=== PATIENT | female | born 1985 | race Caucasian/White ===

== ENCOUNTER 2020-09-05 19:23 | Emergency (ER) | payer MEDICAID, SELFPAY ==
[~2020-09-05] VITALS: Ht 167.6 cm; Wt 138.3 kg
[2020-09-05 19:23] VITALS: BP_SYST 125
--- NOTE | 2020-09-05 20:30 | NUR ---
Patient to ER tent for evaluation. Side rails up. Report given to SONIA Nergo
--- NOTE | 2020-09-05 20:35 | NUR ---
Pt present to ER C/O difficulty breathing and cough x 1 week. Pt reports symtpoms have gotten worse within the last few days. Pt able to speak full sentences and O2 saturation at 97 percent. Pt states hx bariatric surgery. Pt reports symptoms starting 08/28/20.
--- NOTE | 2020-09-05 20:50 | NUR ---
ER at bedside examining patient.
[2020-09-05 21:01] LABS: MONOCYTES # (AUTO) 0.5 K/uL (0.0-1.0); WHITE BLOOD COUNT (AUTO) 5.7 K/uL (4.8-10.8)
[2020-09-05 21:06] LABS: BASOPHILS % (AUTO) 0.4 % (0.0-2.0); EOSINOPHILS % (AUTO) 0.8 % (0.0-4.0); HEMATOCRIT 44.4 % (36-48); HEMOGLOBIN 14.3 g/dL (12.0-16.0); MEAN CORPUSCULAR HEMOGLOBIN 26 pg (27-31); MEAN CORPUSCULAR HGB CONC 32 % (32-36); MEAN CORPUSCULAR VOLUME 81 fL (79.0-98.0); MONOCYTES % (AUTO) 8.1 % (1.7-9.3); NEUTROPHILS # (AUTO) 4.1 K/uL (1.8-7.7); NEUTROPHILS % (AUTO) 72.7 % (40.0-70.0); PLATELET COUNT (AUTO) 251 K/uL (130-430); RED CELL DISTRIBUTION WIDTH 15.3 % (9.0-15.0)
[2020-09-05 21:16] LABS: INFLUENZA A&B ANTIGEN SCREEN NEGATIVE FOR A & B (NEGATIVE)
[2020-09-05 21:18] LABS: CALCIUM 8.3 mg/dL (8.4-11.0); CREATININE 0.77 mg/dL (0.55-1.30)
[2020-09-05 21:24] LABS: ALBUMIN 2.8 g/dL (3.4-4.8); TOTAL BILIRUBIN 0.3 mg/dL (0.0-1.0)
--- NOTE | 2020-09-05 21:50 | NUR ---
Pt walked in place. pt remained stable with an Oxygen saturation above 95%.
[2020-09-05 23:24] VITALS: BP_SYST 124
--- NOTE | 2020-09-05 23:24 | NUR ---
Patient given written and verbal discharge instructions and verbalizes understanding. ER MD discussed with patient the results and treatment provided. Patient in stable condition. ID arm band removed. Rx of Dexamethasone, zithromax, and zinc given. Patient educated on pain management and to follow up with PMD. Opportunity for questions provided and answered. Medication side effect fact sheet provided.
[2020-09-05] MEDS: DECADRON 4 MG TABLET PO ONE (23:38)
[2020-09-05] MEDS: AZITHROMYCIN 250 MG TABLET PO ONE (23:38)
== END 2020-09-05 23:24 | disposition home or self-care (01) ==
LOC: SED 19:23
DX: U07.1 COVID-19 (principal); J18.9 Pneumonia, unspecified organism
CPT/HCPCS: 36415; 36600; 71045; 80053; 82803; 84703; 85025; 86710; 87426; 99284; J8540; Q0144

== ENCOUNTER 2021-07-11 02:11 | Emergency (ER) | payer MEDICAID, SELFPAY ==
[~2021-07-11] VITALS: Ht 167.6 cm; Wt 117.9 kg
[2021-07-11 02:11] VITALS: BP_SYST 130
[2021-07-11] MEDS ORDERED: PROCHLORPERAZINE EDISYLATE 10 MG/2 ML VIAL IVP ONE (03:15)
[2021-07-11] MEDS ORDERED: MORPHINE 4 MG INJ. 4 MG/ML VIAL IVP ONE (03:15)
[2021-07-11] MEDS ORDERED: KETOROLAC TROMETHAMINE 30 MG VIAL IVP ONE (03:15)
[2021-07-11] MEDS ORDERED: HYDR-3917 PO (04:52)
[2021-07-11] MEDS ORDERED: CYCL10TA24 PO (04:52)
[2021-07-11] MEDS ORDERED: NAPR-686 PO (04:52)
[2021-07-11 05:05] VITALS: BP_SYST 130
== END 2021-07-11 05:26 | disposition home or self-care (01) ==
LOC: SED 02:11
DX: M79.605 Pain in left leg (principal)
CPT/HCPCS: 93971; 96374; 96375; 99284; J0780; J1885; J2270

== ENCOUNTER 2021-09-29 13:11 | Emergency (ER) | payer MEDICAID, SELFPAY ==
[~2021-09-29] VITALS: Ht 167.6 cm; Wt 118.4 kg
[~2021-09-29 13:11] MED LIST: CYCL10TA24 PO; HYDR-3917 PO; NAPR-686 PO
[2021-09-29 13:45] VITALS: BP_SYST 132
--- NOTE | 2021-09-29 13:54 | NUR ---
pt. bib mom with pain and swelling to left ankle, pt. states was walking off curb steped down and ankle twisted and she heard cracking, visibly swollen no bruising at this time
--- NOTE | 2021-09-29 14:20 | NUR ---
ER at examining patient in ER HW.
--- NOTE | 2021-09-29 15:22 | NUR ---
johnathon wrap applied by
--- NOTE | 2021-09-29 15:44 | NUR ---
crutches given with instruction use
[2021-09-29] MEDS ORDERED: NAPR-690 PO (15:59)
[2021-09-29 16:07] VITALS: BP_SYST 137
--- NOTE | 2021-09-29 16:08 | NUR ---
Patient given written and verbal discharge instructions and verbalizes understanding. ER Dr. Aguayo discussed with patient the results and treatment provided. Patient in stable condition. ID arm band removed. Rx of Naproxen given. Patient educated on pain management and to follow up with PMD. Pain Scale 5. Opportunity for questions provided and answered. Medication side effect fact sheet provided.
== END 2021-09-29 16:07 | disposition home or self-care (01) ==
LOC: SED 13:11
DX: S93.402A Sprain of unspecified ligament of left ankle, initial encounter (principal); X50.1XXA Overexertion from prolonged static or awkward postures, initial encounter; Y93.89 Activity, other specified; Y92.89 Other specified places as the place of occurrence of the external cause; Y99.8 Other external cause status
CPT/HCPCS: 99283